=== PATIENT | male | born 1975 ===

== ENCOUNTER 2017-01-25 09:58 | Inpatient (IN) | payer BC ==
[2017-01-25] MEDS ORDERED: Phenylephrine 10 mg/ml Inj ONE (10:12)
[2017-01-25] MEDS ORDERED: Nitroglycerin 50mg in D5W 0 ML IV ONE (10:48)
[2017-01-25 11:03] VITALS: BMI 25.0
[2017-01-25] MEDS ORDERED: Heparin25000 units/250ml 1/2NS 250 ML IV PRN ×2 (11:54→12:51)
--- NOTE | 2017-01-25 12:00 | CP.PCM.CON ---
<Jaime Hidalgo - Last Filed: 01/25/17 18:58> History of Present Illness - History of Present Illness History of Present Illness: CRITICAL CARE CONSULT NOTE 41 year old male with PMHx significant for hypercholesterolemia and anxiety presents after sharp left sided chest pain earlier this morning. Patient states that he woke up from bed feeling the pain. He states that it was a 10/10 and felt as if his chest would cave in. The pain began to radiate down his left arm which caused him concern. All the while, patient was trying to figure out whether he was having an anxiety attack; however he realized that this pain was much more severe than he had ever experienced. Patient states that his young three year old child was home and that he did not want the child to hear ambulances and become alarmed so he walked the child to school and then called an uber. The uber brought him to [facility]. Patient states that while there he was told that he was having a heart attack and would have to be transported to [facility]. Pt's states that patient was unusually restless while sleeping last night. She couldn't tell whether he was shaking or in pain; but noted upon his behavior. Patient admits to chest pain, palpitations, nausea, headaches, diarrhea , diaphoresis and dyspnea. Patient denies vomiting at this time. PMHx- as mentioned above PSHx- ganglion cyst removal Fam Hx- Hypercholesterolemia Social: denies alcohol use; admits to drinking alcohol almost daily for many years but quit a few days ago. When patient does drink: he drinks 2-5 glasses of vodka, rum, several beers or glasses of wine. He had two glasses of wine with dinner on Monday; admits to MDMA use, marijuana and cocaine use in the past. Patient admits to using cocaine 1 week ago. Patient very adamant that should not know about drug use history. Meds: Statin, Fish oil Allergies: Shellfish, " cyramide", thorazine, lithium ( most of which cause swelling and anaphylaxis type reaction) PMD: Formerly Dr. Jeronimo of [facility] group Cake Inspector: Dr. Priest of [place] [facility] for hypercholesterolemia management. Review of Systems - Review of Systems Review of Systems: as noted in subjective ( HPI) - Cardiovascular Cardiovascular: Chest Pain, Chest Pain at Rest, Diaphoresis, Dyspnea, Pain Radiating to Arm/Neck/Jaw Past Patient History - Past Social History Smoking Status: Unknown If Ever Smoked Alcohol: > 2 Drinks/Day Drugs: Cannabis, Cocaine, Methamphetamine Home Situation {Lives}: With Family - CARDIAC Hx Hypercholesterolemia: Yes - PULMONARY Hx Respiratory Disorders: No - NEUROLOGICAL Hx Neurological Disorder: No - RENAL Hx Chronic Kidney Disease: No - HEMATOLOGICAL/ONCOLOGICAL Hx Blood Disorders: No - INTEGUMENTARY Hx Dermatological Problems: No - GASTROINTESTINAL Hx Gastrointestinal Disorders: No - GENITOURINARY/GYNECOLOGICAL Hx Genitourinary Disorders: No - PSYCHIATRIC Hx Psychophysiologic Disorder: No - SURGICAL HISTORY Hx Surgeries: No - ANESTHESIA Hx Anesthesia: No Meds Allergies/Adverse Reactions: Allergies Allergy/AdvReac Type Severity Reaction Status Date / Time chlorpromazine HCl Allergy ANAPHYLAXIS Verified 01/25/17 09:46 [From Thorazine] lithium Allergy ANAPHYLAXIS Verified 01/25/17 09:46 shellfish derived Allergy ANAPHYLAXIS Verified 01/25/17 09:46 - Medications Medications: Current Medications Aspirin (Aspirin Chewable) 81 mg PO DAILY [facility] Heparin Sodium (Porcine) (Heparin) 2,500 units IV ONCE ONE Stop: 01/25/17 11:55 Heparin Sodium/Sodium Chloride (Heparin 58631 Units/250ml 1/2 Normal Saline) 250 mls @ 0 mls/hr IV .Q0M PRN; Protocol; Per Protocol PRN Reason: PROTOCOL Rosuvastatin Calcium (Crestor) 20 mg PO HS [facility] Ticagrelor (Brilinta) 90 mg PO BID [facility] Physical Exam - Constitutional Appears: Non-toxic, No Acute Distress - Head Exam Head Exam: ATRAUMATIC, NORMAL INSPECTION, NORMOCEPHALIC - Eye Exam Eye Exam: EOMI, Normal appearance, PERRL Pupil Exam: NORMAL ACCOMODATION - ENT Exam ENT Exam: Mucous Membranes Moist, Normal Exam - Neck Exam Neck exam: Positive for: Normal Inspection - Respiratory Exam Respiratory Exam: Clear to Auscultation Bilateral, NORMAL BREATHING PATTERN. absent: Respiratory Distress - Cardiovascular Exam Cardiovascular Exam: REGULAR RHYTHM, +S1, +S2. absent: Tachycardia - GI/Abdominal Exam GI & Abdominal Exam: Normal Bowel Sounds, Soft - Extremities Exam Extremities exam: Positive for: full ROM, normal capillary refill, normal inspection Additional comments: groin cath site c/d/i no hematoma noted - Back Exam Additional comments: unable to assess at this time as patient is s/p PCI laying completely supine - Neurological Exam Neurological exam: Alert, CN II-XII Intact, Oriented x3 - Psychiatric Exam Psychiatric exam: Normal Mood - Skin Skin Exam: Intact, Normal Color, Warm Assessment & Plan - Assessment and Plan (Free Text) Assessment: 41 year old male with PMHX significant for hypercholesterolemia and anxiety presents code heart transfer from [place] following new onset chest pains experienced this morning. EKG findings significant for inferior wall MT. Patient s/p PCI with no obvious visible signs of coronary artery disease. Plan: Neuro: aao x3 in nad Hx of polysubstance use UDS positive for cocaine and marijuana. Low acetaminophen level. Negative for alcohol. Xanax- anxiety Patient does not want to know about drug hx Cardio: S/P PCI EKG findings of inferior wall MT Troponin 1 negative. Troponin 2-3 elevated and increasing No obvious signs of coronary artery disease Mildly reduced LVEF with mild inferoposterioe hypokinesis Elevated LV EDP Sluggish flow in left coronary artery system. Echo findings- see report. Rule out inflammatory causes- Steroids On Brillinta, ASA, Crestor No Beta blockers- Hx of cocaine use Dr. Winters on the case Pulm: Initial suspected PE ruled out by CTA with low suspicion Suspected Pneumonia- On Cef and Azithro- Started / GI: Regular diet Endo: Maintain euglycemia Nephro/: Continue to monitor Ins and outs Kidney function WNL Prophylaxis: GI: not currently indicated DVT: SCDs at this point; patient received heparin bolus earlier today (1/2 dose ) for initially suspected PE. <Amos Healy - Last Filed: 01/26/17 10:18> Meds - Medications Medications: Current Medications Aspirin (Aspirin Chewable) 81 mg PO DAILY [facility] Azithromycin 500 mg/ Sodium (Chloride) 250 mls @ 250 mls/hr IVPB Q24H [facility] Last Admin: 01/25/17 18:47 Dose: 250 mls/hr Ceftriaxone Sodium (Rocephin Iv 1 Gm Duplex) 50 mls @ 100 mls/hr IVPB Q24H [facility] Last Admin: 01/25/17 18:46 Dose: 100 mls/hr Methylprednisolone (Solu-Medrol) 40 mg IV Q8 [facility] Rosuvastatin Calcium (Crestor) 20 mg PO HS [facility] Ticagrelor (Brilinta) 90 mg PO BID [facility] Last Admin: 01/25/17 17:35 Dose: 90 mg Results - Vital Signs Recent Vital Signs: Last Vital Signs Temp 97.6 F 01/25/17 16:00 Pulse 68 01/25/17 19:00 Resp 16 01/25/17 19:00 BP 98/57 L 01/25/17 19:00 Pulse Ox 97 01/25/17 19:00 - Labs Result Diagrams: 01/26/17 05:01 01/26/17 05:01 Labs: Laboratory Results - last 24 hr 01/25/17 12:53 Total Creatine Kinase 511 H CK-MB (Mass) 38.6 H Troponin I Cancelled Troponin I, Quant 14.3000 H* NT-Pro-B Natriuret Pep 653 H Alcohol, Quantitative < 10 Attending/Attestation - Attestation I have personally seen and examined this patient.: Yes I have fully participated in the care of the patient.: Yes I have reviewed all pertinent clinical information: Yes Notes (Text): patient seen and examined 41 year old male with PMHX significant for hypercholesterolemia and anxiety presents code heart transfer from [place] following new onset chest pains experienced this morning. EKG findings significant for inferior wall MT. Patient s/p PCI with no obvious visible signs of coronary artery disease. CAT scan of the chest with contrast showed no pulmonary embolism but early infiltrate patient started on empiric antibiotic coverage Continue anticoagulation for now Follow-up with cardiology No further chest pain Hemodynamically stable Started on steroids for the possibility of myocarditis
[2017-01-25] MEDS ORDERED: Iodixanol 320 MG/ML 100 ML BOTTLE IV ONE (12:35)
[2017-01-25 13:09] LABS: ALCOHOL SERUM < 10 mg/dl (0-10)
--- NOTE | 2017-01-25 13:49 | CARDCATH ---
PROCEDURE DATE: 01/25/2017 BRIEF CLINICAL HISTORY: This is a 41-year-old gentleman who presented to [facility] with complaints of acute onset chest pain within the last 12 hours. Initial EKG showed suspicious ST flaquita vation in the inferior leads and was transferred to [facility] labour market economist for urgent catheterizati on. After informed consent obtained, the patient was brought to the labour market economist and placed on the table and prepped and draped in the usual sterile fashion. Conscious sedation and premedication for SHELLFISH ALLERGY Pepcid and Benadryl. Local lidocaine was infused in the right femoral artery region, f ollowed by the use of a micropuncture needle. The femoral artery access was obtained and a 6-Iranian sheath was placed. Usual diagnostic catheters were used for diagnostic coronary angiography with res ults as follows. FINDINGS: Left main normal caliber, normal vessel. LAD normal caliber vessel with sluggish flow seen and mild luminal irregularities in the proximal and middle segments. The distal LAD had areas of angulation and tortuosity and tapered down to small to medium size, but wrapped around the apex. Left circumflex artery was normal to medium caliber in size with mild luminal irregularities. Again sluggish flow was seen in this artery as well. Right coronary artery showed mild luminal irregularities and was an average caliber vessel. Distal r unoff into the right PDA and right PLS was noted with overall sluggish flow in this vessel as well. Left ventriculography was done with a hand injection revealing ejection fraction estimated to be 45% with mild inferior posterior hypokinesia and an elevated LVEDP of 28 mmHg. Aortic root injection was done showing normal caliber aorta without any luminal irregularities. The patient's blood pressure was low in the lab, which required IV fluids as well as 1 bolus of Jared-S ynephrine. The patient tolerated the procedure well without complications. The right femoral artery sheath was removed and Angio-Seal was used to close the puncture site. CONCLUSION: 1. No visible obstructive coronary artery disease. 2. Mildly reduced left ventricular ejection fraction with mild inferoposterior hypokinesia. 3. Elevated left ventricular end diastolic pressure. 4. Sluggish flow seen in the left coronary artery system. IMPRESSION: Differential diagnosis as cause of ST elevation in the inferior leads can include acute thrombosis with spontaneous recanalization. Also can be considered the possibility of perimyocarditis or other cardiomyopathy. Bedside echo was done at the end of the procedure, suggesting low normal LV function, borderline righ t ventricular function, mild to moderate mitral regurgitation, normal pulmonary artery systolic press ure, dilated and noncompliant IVC with mild inferoposterior hypokinesia. Based on these findings, I would suggest continuation of aspirin and Brilinta as well as heparin. Diagnostic evaluation with lo wer extremity venous Doppler and CT chest to exclude DVT or PE. The patient should continue with med ical optimization for mild LV systolic dysfunction and mild coronary artery disease. Willy Winters MD cc: [id number] TT: 01/25/2017 13:48:17 janice
--- NOTE | 2017-01-25 14:11 | CT ---
PROCEDURE: CT Chest with contrast (Pulmonary Angiogram) HISTORY: rule out PE COMPARISON: None available. TECHNIQUE: Axial computed tomography images were obtained of the chest in the pulmonary arterial phase of enhancement. Coronal and sagittal reformatted images were created and reviewed. Intravenous contrast dose: 100 mL Visipaque 320 Radiation dose: Total exam DLP = 509.13 mGy-cm. This CT exam was performed using one or more of the following dose reduction techniques: Automated exposure control, adjustment of the mA and/or kV according to patient size, and/or use of iterative reconstruction technique. FINDINGS: PULMONARY ARTERIES: Unremarkable. No pulmonary embolism. AORTA: No acute findings. No thoracic aortic aneurysm. LUNGS: Dependent atelectasis both lower lobes, right greater than left. Also in posterior segment right upper lobe. Cannot rule out early infiltrate superior segment right lower lobe. No pulmonary mass. PLEURAL SPACES: Unremarkable. No effusion or pneuomothorax. HEART: Unremarkable. No cardiomegaly. No significant pericardial effusion. LYMPH NODES: No lymphadenopathy. BONES, CHEST WALL: Unremarkable. No fracture or destructive lesion OTHER FINDINGS: Unremarkable. IMPRESSION: No evidence of pulmonary embolism. Bilateral lower lobe dependent atelectasis. Possible early infiltrate superior segment right lower lobe. Followup advised. No other abnormality.
--- NOTE | 2017-01-25 15:45 | CARD ---
APPROVED REPORT EXAM: Two-dimensional and M-mode echocardiogram with Doppler and color Doppler. Other Information Quality : GoodRhythm : INDICATION Acute MA Chest Pain POST CODE HEART M-Mode DIMENSIONS RVDd1.29 (2.1-3.2cm)Left Atrium (MM)3.02 (2.5-4.0cm) IVSd1.18 (0.7-1.1cm)Aortic Root2.91 (2.2-3.7cm) LVDd5.31 (4.0-5.6cm)Aortic Cusp Exc.2.14 (1.5-2.0cm) PWd1.07 (0.7-1.1cm)FS (%) 26 % LVDs3.91 (2.0-3.8cm)LVEF (%)45 (>50%) Mitral Valve MV E Anuizvhk65.1cm/sMV A Tiutetbf65.8cm/sE/A ratio2.2 TDI E/Lateral E'0.0E/Medial E'0.0 Tricuspid Valve TR Peak Rugfmitr774fh/sTR Peak Gr.[id number] LEFT VENTRICLE The left ventricle is normal size. There is normal left ventricular wall thickness. The systolic function is mildly impaired. The left ventricular diastolic function is normal. No left ventricle thrombus noted on this study. RIGHT VENTRICLE The right ventricle is normal size. There is normal right ventricular wall thickness. The right ventricular systolic function is normal. ATRIA The left atrium size is normal. The right atrium size is normal. AORTIC VALVE The aortic valve is normal in structure. No aortic regurgitation is present. MITRAL VALVE Mitral regurgitation is mild. TRICUSPID VALVE The tricuspid valve is normal in structure. GREAT VESSELS The aortic root is normal in size. The IVC is dilated. PERICARDIAL EFFUSION There is no pericardial effusion. <Conclusion> The left ventricle is normal size. There is normal left ventricular wall thickness. The systolic function is mildly impaired. The left ventricular diastolic function is normal. No left ventricle thrombus noted on this study. Mitral regurgitation is mild.
--- NOTE | 2017-01-25 18:10 | CP.PCM.HP ---
<Jaime Hidalgo - Last Filed: 01/25/17 18:43> Meds Allergies/Adverse Reactions: Allergies Allergy/AdvReac Type Severity Reaction Status Date / Time chlorpromazine HCl Allergy ANAPHYLAXIS Verified 01/25/17 09:46 [From Thorazine] lithium Allergy ANAPHYLAXIS Verified 01/25/17 09:46 shellfish derived Allergy ANAPHYLAXIS Verified 01/25/17 09:46 Results - Vital Signs Recent Vital Signs: Last Vital Signs Temp 97.6 F 01/25/17 16:00 Pulse 75 01/25/17 18:00 Resp 16 01/25/17 18:00 BP 102/54 L 01/25/17 18:00 Pulse Ox 100 01/25/17 17:56 - Labs Labs: Laboratory Results - last 24 hr 01/25/17 12:53 Total Creatine Kinase 511 H CK-MB (Mass) 38.6 H Troponin I Cancelled Troponin I, Quant 14.3000 H* NT-Pro-B Natriuret Pep 653 H Alcohol, Quantitative < 10 <Denise Carrillo S - Last Filed: 04/28/17 20:56> History of Present Illness - History of Present Illness History of Present Illness: 41 year old male with PMHX significant for HLD and anxiety presented with c/o new onset left sided chest pain radiating to left arm this morning. c/o nausea, headache, diarrhea, c/o increased sweating, mild SOB EKG findings significant for inferior wall LA. admitted and taken for CAG. Present on Admission - Present on Admission Any Indicators Present on Admission: No Past Patient History - Past Medical History & Family History Past Medical History?: Yes - Past Social History Smoking Status: Former Smoker - CARDIAC Hx Hypercholesterolemia: Yes Other/Comment: Pt has chest pain on this admission - PULMONARY Hx Respiratory Disorders: No - NEUROLOGICAL Hx Neurological Disorder: No - HEENT Hx HEENT Problems: No - RENAL Hx Chronic Kidney Disease: No - ENDOCRINE/METABOLIC Hx Endocrine Disorders: No - HEMATOLOGICAL/ONCOLOGICAL Hx Blood Disorders: No - INTEGUMENTARY Hx Dermatological Problems: No - MUSCULOSKELETAL/RHEUMATOLOGICAL Hx Musculoskeletal Disorders: No Hx Falls: No - GASTROINTESTINAL Hx Gastrointestinal Disorders: No - GENITOURINARY/GYNECOLOGICAL Hx Genitourinary Disorders: No - PSYCHIATRIC Hx Psychophysiologic Disorder: No - SURGICAL HISTORY Hx Surgeries: Yes Other/Comment: cyst removed from left wrist 2013 - ANESTHESIA Hx Anesthesia: Yes Hx Anesthesia Reactions: No Physical Exam - Constitutional Appears: Well - Head Exam Head Exam: ATRAUMATIC, NORMAL INSPECTION, NORMOCEPHALIC - Eye Exam Eye Exam: EOMI, Normal appearance, PERRL Pupil Exam: NORMAL ACCOMODATION, PERRL - ENT Exam ENT Exam: Mucous Membranes Moist, Normal Exam - Neck Exam Neck exam: Positive for: Normal Inspection - Respiratory Exam Respiratory Exam: Decreased Breath Sounds - Cardiovascular Exam Cardiovascular Exam: REGULAR RHYTHM, +S1, +S2 - GI/Abdominal Exam GI & Abdominal Exam: Diminished Bowel Sounds, Soft - Rectal Exam Rectal Exam: Deferred Results - Vital Signs Recent Vital Signs: Last Vital Signs Temp 97.6 F 01/25/17 16:00 Pulse 63 01/25/17 16:00 Resp 16 01/25/17 16:00 BP 101/60 01/25/17 16:00 Pulse Ox 95 01/25/17 14:30 - Labs Result Diagrams: 01/26/17 05:01 01/26/17 05:01 Labs: Laboratory Results - last 24 hr 01/25/17 12:53 Total Creatine Kinase 511 H CK-MB (Mass) 38.6 H Troponin I Cancelled Troponin I, Quant 14.3000 H* NT-Pro-B Natriuret Pep 653 H Alcohol, Quantitative < 10 Assessment & Plan (1) Acute LA Status: Acute (2) Chest pain Status: Acute (3) Drug abuse, cocaine type Status: Acute (4) Drug abuse, marijuana Status: Acute - Assessment and Plan (Free Text) Plan: s/p PCI brillint aspirin Dr Winters Statin monitor vitals input/output
[2017-01-25] MEDS: cefTRIAXone IV 1 gm in Dextros 50 ML IVPB SCH (18:46)
[2017-01-25] MEDS: Azithromycin 500 MG in Sodium Chloride 0.9% 250 ML IVPB SCH (18:47)
[2017-01-25 20:16] LABS: BASO % 0.1 % (0.0-2.0); HEMATOCRIT 45.1 % (35.0-51.0); LYMPH # 0.5 K/uL (1.0-4.3); LYMPH % 9.6 % (20.0-40.0); MEAN CELL VOLUME 85.3 fL (80.0-94.0); MEAN CORPUSCULAR HEMOGLOBIN 28.6 pg (27.0-31.0); MEAN CORPUSCULAR HGB CONC 33.6 g/dL (33.0-37.0); MEAN PLATELET VOLUME 8.2 fL (7.2-11.7); MONO # 0.1 K/uL (0.0-0.8); MONO % 1.7 % (0.0-10.0); PLATELET COUNT 202 K/uL (130-400); RED CELL DISTRIBUTION WIDTH 13.6 % (11.5-14.5); WHITE BLOOD COUNT 5.1 K/uL (4.8-10.8)
[2017-01-25 20:26] LABS: CHLORIDE 103 mmol/L (98-107)
[2017-01-25 20:27] LABS: POTASSIUM 4.1 mmol/L (3.6-5.2); SODIUM 138 mmol/L (132-148)
[2017-01-25 20:29] LABS: ALB/GLOB RATIO 1.3 (1.0-2.1); ALKALINE PHOSPHATASE 47 U/L (38-126); AST/SGOT 115 U/L (17-59); BILIRUBIN,TOTAL 0.4 mg/dL (0.2-1.3); CARBON DIOXIDE 21 mmol/L (22-30); GFR AFRICAN-AMERICAN > 60; TOTAL PROTEIN 6.8 g/dL (6.3-8.3)
[2017-01-25 20:30] LABS: ALT/SGPT 52 U/L (21-72); BLOOD UREA NITROGEN 10 mg/dL (9-20); CALCIUM 8.3 mg/dl (8.6-10.4); GLUCOSE,RANDOM 213 mg/dL (75-110)
[2017-01-26 05:04] LABS: BASO % 0.2 % (0.0-2.0); HEMATOCRIT 43.5 % (35.0-51.0); LYMPH # 0.8 K/uL (1.0-4.3); LYMPH % 8.2 % (20.0-40.0); MEAN CELL VOLUME 84.5 fL (80.0-94.0); MEAN CORPUSCULAR HEMOGLOBIN 28.2 pg (27.0-31.0); MEAN CORPUSCULAR HGB CONC 33.3 g/dL (33.0-37.0); MEAN PLATELET VOLUME 8.4 fL (7.2-11.7); MONO # 0.5 K/uL (0.0-0.8); MONO % 4.6 % (0.0-10.0); NRBC % 0.1 % (0.0-2.0); PLATELET COUNT 184 K/uL (130-400); RED CELL DISTRIBUTION WIDTH 13.4 % (11.5-14.5)
[2017-01-26 05:05] LABS: WHITE BLOOD COUNT 10.1 K/uL (4.8-10.8)
[2017-01-26 05:11] LABS: CHLORIDE 109 mmol/L (98-107); SODIUM 142 mmol/L (132-148)
[2017-01-26 05:13] LABS: BILIRUBIN,TOTAL 0.6 mg/dL (0.2-1.3); GFR AFRICAN-AMERICAN > 60
[2017-01-26 05:14] LABS: ALB/GLOB RATIO 1.3 (1.0-2.1); ALKALINE PHOSPHATASE 49 U/L (38-126); ALT/SGPT 48 U/L (21-72); AST/SGOT 90 U/L (17-59); BLOOD UREA NITROGEN 12 mg/dL (9-20); CARBON DIOXIDE 21 mmol/L (22-30); GLUCOSE,RANDOM 178 mg/dL (75-110); PHOSPHOROUS 2.6 mg/dL (2.5-4.5); TOTAL PROTEIN 6.9 g/dL (6.3-8.3)
[2017-01-26 05:15] LABS: CALCIUM 8.6 mg/dl (8.6-10.4); MAGNESIUM 2.4 mg/dL (1.6-2.3)
[2017-01-26 05:43] LABS: NEUTROPHIL 80 % (50-75); TOTAL CELLS COUNTED 100
[2017-01-26 05:51] LABS: NEUTROPHIL 83 % (50-75); TOTAL CELLS COUNTED 100
--- NOTE | 2017-01-26 11:23 | CP.CCUPN ---
<Jaime Hidalgo - Last Filed: 01/26/17 16:17> CCU Subjective - Physician Review Subjective (Free Text): 01/26/17 16:17 Pt seen and examined in no acute distress. Pt's present bedside. Patient's would like patient transferred to [facility]. Patient has no complaints at this time. CCU Objective - Vital Signs / Intake & Output Vital Signs (Last 4 hours): Vital Signs Temp Pulse Resp BP Pulse Ox 01/26/17 11:00 76 16 91/70 L 97 01/26/17 10:00 75 20 95/68 L 97 01/26/17 09:00 66 17 96/54 L 96 01/26/17 08:00 97.6 F 63 20 92/51 L 94 L Intake and Output (Last 8hrs): Intake & Output 01/25/17 01/26/17 01/26/17 22:59 06:59 14:59 Intake Total 497.4 150 300 Output Total 1100 1200 0 Balance -602.6 -1050 300 Weight 165 lb Intake: Intake, IV Amount 77.4 0 0 Right Antecubital 68.4 0 0 Rt Antecubital side port 9 Oral 420 150 300 Output: Urine 1100 1200 0 Urine, Voided 1100 1200 0 Other: # Voids Urine, Voided 1 - Physical Exam Head: Positive for: Atraumatic, Normocephalic Pupils: Positive for: PERRL Extroacular Muscles: Positive for: EOMI Mouth: Positive for: Moist Mucous Membranes Cardiovascular: Positive for: Normal S1, S2 Abdomen: Negative for: Distention, Normal Bowel Sounds, Peritoneal Signs Upper Extremity: Positive for: Normal Inspection Lower Extremity: Positive for: Normal Inspection Neurological: Positive for: CN II-XII Intact, Speech Normal Skin: Positive for: Warm, Dry, Normal Color Psychiatric: Positive for: Alert, Normal Insight, Normal Concentration - Medications Active Medications: Active Medications Generic Name Dose Route Start Last Admin Trade Name Linoq PRN Reason Stop Dose Admin Aspirin 81 mg 01/26/17 10:00 01/26/17 09:08 Aspirin Chewable PO 81 mg DAILY NIKI Administration Azithromycin 500 mg/ Sodium 250 mls @ 250 mls/hr 01/25/17 19:00 01/25/17 18:47 Chloride IVPB 250 mls/hr Q24H NIKI Administration Ceftriaxone Sodium 50 mls @ 100 mls/hr 01/25/17 19:00 01/25/17 18:46 Rocephin Iv 1 Gm Duplex IVPB 100 mls/hr Q24H NIKI Administration Methylprednisolone 40 mg 01/25/17 22:00 01/26/17 07:30 Solu-Medrol IV 40 mg Q8 NIKI Administration Rosuvastatin Calcium 20 mg 01/25/17 22:00 01/25/17 22:00 Crestor PO 20 mg HS NIKI Administration Ticagrelor 90 mg 01/25/17 18:00 01/26/17 09:08 Brilinta PO 90 mg BID NIKI Administration - Patient Studies Lab Studies: Lab Studies 01/26/17 01/26/17 01/25/17 Range/Units 05:50 05:01 20:05 WBC 10.1 D 5.1 (4.8-10.8) K/uL RBC 5.15 5.29 (4.40-5.90) Mil/uL Hgb 14.5 15.1 (12.0-18.0) g/dL Hct 43.5 45.1 (35.0-51.0) % MCV 84.5 85.3 (80.0-94.0) fL MCH 28.2 28.6 (27.0-31.0) pg MCHC 33.3 33.6 (33.0-37.0) g/dL RDW 13.4 13.6 (11.5-14.5) % Plt Count 184 202 (130-400) K/uL MPV 8.4 8.2 (7.2-11.7) fL Neut % (Auto) 87.0 H 88.6 H (50.0-75.0) % Lymph % (Auto) 8.2 L 9.6 L (20.0-40.0) % [place] % (Auto) 4.6 1.7 (0.0-10.0) % Eos % (Auto) 0.0 0.0 (0.0-4.0) % Baso % (Auto) 0.2 0.1 (0.0-2.0) % Neut # 8.8 H 4.5 (1.8-7.0) K/uL Lymph # 0.8 L 0.5 L (1.0-4.3) K/uL [place] # 0.5 0.1 (0.0-0.8) K/uL Eos # 0.0 0.0 (0.0-0.7) K/uL Baso # 0.0 0.0 (0.0-0.2) K/uL Neutrophils % (Manual) 83 H 80 H (50-75) % Band Neutrophils % 4 H 8 H (0-2) % Lymphocytes % (Manual) 9 L 10 L (20-40) % Monocytes % (Manual) 4 2 (0-10) % Platelet Estimate Normal Normal (NORMAL) Sodium 142 138 (132-148) mmol/L Potassium 4.0 4.1 (3.6-5.2) mmol/L Chloride 109 H 103 (98-107) mmol/L Carbon Dioxide 21 L 21 L (22-30) mmol/L Anion Gap 16 18 (10-20) BUN 12 10 (9-20) mg/dL Creatinine 0.8 0.9 (0.8-1.5) MG/DL Est GFR ( Amer) > 60 > 60 Est GFR (Non-Af Amer) > 60 > 60 Random Glucose 178 H 213 H (75-110) mg/dL Calcium 8.6 8.3 L (8.6-10.4) mg/dl Phosphorus 2.6 (2.5-4.5) mg/dL Magnesium 2.4 H (1.6-2.3) mg/dL Total Bilirubin 0.6 0.4 (0.2-1.3) mg/dL AST 90 H D 115 H (17-59) U/L ALT 48 52 (21-72) U/L Alkaline Phosphatase 49 47 (38-126) U/L Total Creatine Kinase 613 H (55-170) U/L CK-MB (Mass) 51.7 H (0.0-3.38) ng/mL Troponin I 4.6600 H* 11.0000 H* (0.00-0.120) ng/mL Troponin I, Quant 11.0000 H* (0.00-0.120) ng/mL NT-Pro-B Natriuret Pep (0-450) pg/mL Total Protein 6.9 6.8 (6.3-8.3) g/dL Albumin 3.9 3.8 (3.5-5.0) g/dL Globulin 3.0 3.0 (2.2-3.9) gm/dL Albumin/Globulin Ratio 1.3 1.3 (1.0-2.1) Urine Opiates Screen Negative (NEGATIVE) Urine Methadone Screen Negative (NEGATIVE) Ur Barbiturates Screen Negative (NEGATIVE) Ur Phencyclidine Scrn Negative (NEGATIVE) Ur Amphetamines Screen Negative (NEGATIVE) U Benzodiazepines Scrn Negative (NEGATIVE) U Oth Cocaine Metabols Negative (NEGATIVE) U Cannabinoids Screen Negative (NEGATIVE) Alcohol, Quantitative (0-10) mg/dl 01/25/17 Range/Units 12:53 WBC (4.8-10.8) K/uL RBC (4.40-5.90) Mil/uL Hgb (12.0-18.0) g/dL Hct (35.0-51.0) % MCV (80.0-94.0) fL MCH (27.0-31.0) pg MCHC (33.0-37.0) g/dL RDW (11.5-14.5) % Plt Count (130-400) K/uL MPV (7.2-11.7) fL Neut % (Auto) (50.0-75.0) % Lymph % (Auto) (20.0-40.0) % [place] % (Auto) (0.0-10.0) % Eos % (Auto) (0.0-4.0) % Baso % (Auto) (0.0-2.0) % Neut # (1.8-7.0) K/uL Lymph # (1.0-4.3) K/uL [place] # (0.0-0.8) K/uL Eos # (0.0-0.7) K/uL Baso # (0.0-0.2) K/uL Neutrophils % (Manual) (50-75) % Band Neutrophils % (0-2) % Lymphocytes % (Manual) (20-40) % Monocytes % (Manual) (0-10) % Platelet Estimate (NORMAL) Sodium (132-148) mmol/L Potassium (3.6-5.2) mmol/L Chloride (98-107) mmol/L Carbon Dioxide (22-30) mmol/L Anion Gap (10-20) BUN (9-20) mg/dL Creatinine (0.8-1.5) MG/DL Est GFR ( Amer) Est GFR (Non-Af Amer) Random Glucose (75-110) mg/dL Calcium (8.6-10.4) mg/dl Phosphorus (2.5-4.5) mg/dL Magnesium (1.6-2.3) mg/dL Total Bilirubin (0.2-1.3) mg/dL AST (17-59) U/L ALT (21-72) U/L Alkaline Phosphatase (38-126) U/L Total Creatine Kinase 511 H (55-170) U/L CK-MB (Mass) 38.6 H (0.0-3.38) ng/mL Troponin I Cancelled (0.00-0.120) ng/mL Troponin I, Quant 14.3000 H* (0.00-0.120) ng/mL NT-Pro-B Natriuret Pep 653 H (0-450) pg/mL Total Protein (6.3-8.3) g/dL Albumin (3.5-5.0) g/dL Globulin (2.2-3.9) gm/dL Albumin/Globulin Ratio (1.0-2.1) Urine Opiates Screen (NEGATIVE) Urine Methadone Screen (NEGATIVE) Ur Barbiturates Screen (NEGATIVE) Ur Phencyclidine Scrn (NEGATIVE) Ur Amphetamines Screen (NEGATIVE) U Benzodiazepines Scrn (NEGATIVE) U Oth Cocaine Metabols (NEGATIVE) U Cannabinoids Screen (NEGATIVE) Alcohol, Quantitative < 10 (0-10) mg/dl Laboratory Results - last 24 hr 01/25/17 01/25/17 01/26/17 12:53 20:05 05:01 WBC 5.1 10.1 D RBC 5.29 5.15 Hgb 15.1 14.5 Hct 45.1 43.5 MCV 85.3 84.5 MCH 28.6 28.2 MCHC 33.6 33.3 RDW 13.6 13.4 Plt Count 202 184 MPV 8.2 8.4 Neut % (Auto) 88.6 H 87.0 H Lymph % (Auto) 9.6 L 8.2 L [place] % (Auto) 1.7 4.6 Eos % (Auto) 0.0 0.0 Baso % (Auto) 0.1 0.2 Neut # 4.5 8.8 H Lymph # 0.5 L 0.8 L [place] # 0.1 0.5 Eos # 0.0 0.0 Baso # 0.0 0.0 Neutrophils % (Manual) 80 H 83 H Band Neutrophils % 8 H 4 H Lymphocytes % (Manual) 10 L 9 L Monocytes % (Manual) 2 4 Platelet Estimate Normal Normal Sodium 138 142 Potassium 4.1 4.0 Chloride 103 109 H Carbon Dioxide 21 L 21 L Anion Gap 18 16 BUN 10 12 Creatinine 0.9 0.8 Est GFR ( Amer) > 60 > 60 Est GFR (Non-Af Amer) > 60 > 60 Random Glucose 213 H 178 H Calcium 8.3 L 8.6 Phosphorus 2.6 Magnesium 2.4 H Total Bilirubin 0.4 0.6 AST 115 H 90 H D ALT 52 48 Alkaline Phosphatase 47 49 Total Creatine Kinase 511 H 613 H CK-MB (Mass) 38.6 H 51.7 H Troponin I Cancelled 11.0000 H* 4.6600 H* Troponin I, Quant 14.3000 H* 11.0000 H* NT-Pro-B Natriuret Pep 653 H Total Protein 6.8 6.9 Albumin 3.8 3.9 Globulin 3.0 3.0 Albumin/Globulin Ratio 1.3 1.3 Urine Opiates Screen Urine Methadone Screen Ur Barbiturates Screen Ur Phencyclidine Scrn Ur Amphetamines Screen U Benzodiazepines Scrn U Oth Cocaine Metabols U Cannabinoids Screen Alcohol, Quantitative < 10 01/26/17 05:50 WBC RBC Hgb Hct MCV MCH MCHC RDW Plt Count MPV Neut % (Auto) Lymph % (Auto) [place] % (Auto) Eos % (Auto) Baso % (Auto) Neut # Lymph # [place] # Eos # Baso # Neutrophils % (Manual) Band Neutrophils % Lymphocytes % (Manual) Monocytes % (Manual) Platelet Estimate Sodium Potassium Chloride Carbon Dioxide Anion Gap BUN Creatinine Est GFR ( Amer) Est GFR (Non-Af Amer) Random Glucose Calcium Phosphorus Magnesium Total Bilirubin AST ALT Alkaline Phosphatase Total Creatine Kinase CK-MB (Mass) Troponin I Troponin I, Quant NT-Pro-B Natriuret Pep Total Protein Albumin Globulin Albumin/Globulin Ratio Urine Opiates Screen Negative Urine Methadone Screen Negative Ur Barbiturates Screen Negative Ur Phencyclidine Scrn Negative Ur Amphetamines Screen Negative U Benzodiazepines Scrn Negative U Oth Cocaine Metabols Negative U Cannabinoids Screen Negative Alcohol, Quantitative EKG/Cardiology Studies: Cardiology / EKG Studies 01/25/17 11:07 ELECTROCARDIOGRAM Q8H Comment: Mode Of Transportation: Reason For Exam: STEMI 01/25/17 12:04 EKG [ELECTROCARDIOGRAM] Stat Comment: Mode Of Transportation: PORTABLE Reason For Exam: post code heart 01/25/17 19:07 ELECTROCARDIOGRAM Q8H Comment: Mode Of Transportation: Reason For Exam: STEMI 01/26/17 03:07 ELECTROCARDIOGRAM Q8H Comment: Mode Of Transportation: Reason For Exam: STEMI Review of Systems - Cardiovascular Cardiovascular: absent: Chest Pain, Chest Pain at Rest, Chest Pain with Activity - Respiratory Respiratory: absent: Cough, Dyspnea - Gastrointestinal Gastrointestinal: absent: Abdominal Pain - Musculoskeletal Musculoskeletal: absent: Arthralgias, Atrophy, Back Pain Critical Care Progress Note - Nutrition Nutrition: Nutrition Category Date Time Status Heart Healthy Diet [DIET] Diets 01/25/17 Lunch Active Assessment/Plan - Assessment and Plan (Free Text) Assessment: 41 year old male with PMHX significant for hypercholesterolemia and anxiety presents code heart transfer from [place] following new onset chest pains experienced this morning. EKG findings significant for inferior wall HI. Patient s/p PCI with no obvious visible signs of coronary artery disease. Plan: Neuro: aao x3 in nad Hx of polysubstance use UDS positive for cocaine and marijuana. Low acetaminophen level. Negative for alcohol. Xanax- anxiety Patient does not want to know about drug hx Cardio: S/P PCI EKG findings of inferior wall HI Troponin 1 negative. Troponin 2-3 elevated and increasing No obvious signs of coronary artery disease Mildly reduced LVEF with mild inferoposterior hypokinesis Elevated LV EDP Sluggish flow in left coronary artery system. Echo findings- per Dr. Winters: Mild inf-posterior hypokinesia with mild reduction in LV systolic function and dilated IVC with Bordeline/normal RV function Rule out inflammatory causes- Steroids On Brillinta, ASA, Crestor No Beta blockers- Hx of cocaine use Dr. Winters on the case Recommendations for low dose beta iban b/c cardioprotective benefits outweigh risks. Patient instructed on discontinuing any further cocaine use. Pulm: Initial suspected PE ruled out by CTA with low suspicion Suspected Pneumonia- On Cef and Azithro- Started 01/25 GI: Regular diet Endo: Maintain euglycemia Nephro/: Continue to monitor Ins and outs Kidney function WNL Prophylaxis: GI: not currently indicated DVT: SCDs at this point; patient received heparin bolus yest for initially suspected PE. Hold anticoag. Disp: Pt accepted at [facility]. Patient downgraded to telemetry status. Awaiting authorization for transfer to [facility] at [place]. <Wayne Ochoa - Last Filed: 01/26/17 17:00> CCU Objective - Vital Signs / Intake & Output Vital Signs (Last 4 hours): Vital Signs Temp Pulse Resp BP Pulse Ox 01/26/17 16:00 97.8 F 64 18 131/84 96 01/26/17 15:00 73 16 91/36 L 96 01/26/17 14:00 75 20 121/89 97 01/26/17 13:00 70 17 102/68 98 Intake and Output (Last 8hrs): Intake & Output 01/26/17 01/26/17 01/26/17 06:59 14:59 22:59 Intake Total 150 600 Output Total 1200 600 0 Balance -1050 0 0 Weight 165 lb Intake: Intake, IV Amount 0 0 Right Antecubital 0 0 Oral 150 600 Output: Urine 1200 600 0 Urine, Voided 1200 600 0 Other: # Voids Urine, Voided 1 - Medications Active Medications: Active Medications Generic Name Dose Route Start Last Admin Trade Name Freq PRN Reason Stop Dose Admin Aspirin 81 mg 01/26/17 10:00 01/26/17 09:08 Aspirin Chewable PO 81 mg DAILY NIKI Administration Azithromycin 500 mg/ Sodium 250 mls @ 250 mls/hr 01/25/17 19:00 01/25/17 18:47 Chloride IVPB 250 mls/hr Q24H NIKI Administration Ceftriaxone Sodium 50 mls @ 100 mls/hr 01/25/17 19:00 01/25/17 18:46 Rocephin Iv 1 Gm Duplex IVPB 100 mls/hr Q24H NIKI Administration Methylprednisolone 40 mg 01/25/17 22:00 01/26/17 14:16 Solu-Medrol IV 40 mg Q8 NIKI Administration Rosuvastatin Calcium 20 mg 01/25/17 22:00 01/25/17 22:00 Crestor PO 20 mg HS NIKI Administration Ticagrelor 90 mg 01/25/17 18:00 01/26/17 09:08 Brilinta PO 90 mg BID NIKI Administration - Patient Studies Lab Studies: Lab Studies 01/26/17 01/26/17 01/25/17 Range/Units 05:50 05:01 20:05 WBC 10.1 D 5.1 (4.8-10.8) K/uL RBC 5.15 5.29 (4.40-5.90) Mil/uL Hgb 14.5 15.1 (12.0-18.0) g/dL Hct 43.5 45.1 (35.0-51.0) % MCV 84.5 85.3 (80.0-94.0) fL MCH 28.2 28.6 (27.0-31.0) pg MCHC 33.3 33.6 (33.0-37.0) g/dL RDW 13.4 13.6 (11.5-14.5) % Plt Count 184 202 (130-400) K/uL MPV 8.4 8.2 (7.2-11.7) fL Neut % (Auto) 87.0 H 88.6 H (50.0-75.0) % Lymph % (Auto) 8.2 L 9.6 L (20.0-40.0) % [place] % (Auto) 4.6 1.7 (0.0-10.0) % Eos % (Auto) 0.0 0.0 (0.0-4.0) % Baso % (Auto) 0.2 0.1 (0.0-2.0) % Neut # 8.8 H 4.5 (1.8-7.0) K/uL Lymph # 0.8 L 0.5 L (1.0-4.3) K/uL [place] # 0.5 0.1 (0.0-0.8) K/uL Eos # 0.0 0.0 (0.0-0.7) K/uL Baso # 0.0 0.0 (0.0-0.2) K/uL Neutrophils % (Manual) 83 H 80 H (50-75) % Band Neutrophils % 4 H 8 H (0-2) % Lymphocytes % (Manual) 9 L 10 L (20-40) % Monocytes % (Manual) 4 2 (0-10) % Platelet Estimate Normal Normal (NORMAL) Sodium 142 138 (132-148) mmol/L Potassium 4.0 4.1 (3.6-5.2) mmol/L Chloride 109 H 103 (98-107) mmol/L Carbon Dioxide 21 L 21 L (22-30) mmol/L Anion Gap 16 18 (10-20) BUN 12 10 (9-20) mg/dL Creatinine 0.8 0.9 (0.8-1.5) MG/DL Est GFR ( Amer) > 60 > 60 Est GFR (Non-Af Amer) > 60 > 60 Random Glucose 178 H 213 H (75-110) mg/dL Calcium 8.6 8.3 L (8.6-10.4) mg/dl Phosphorus 2.6 (2.5-4.5) mg/dL Magnesium 2.4 H (1.6-2.3) mg/dL Total Bilirubin 0.6 0.4 (0.2-1.3) mg/dL AST 90 H D 115 H (17-59) U/L ALT 48 52 (21-72) U/L Alkaline Phosphatase 49 47 (38-126) U/L Total Creatine Kinase 613 H (55-170) U/L CK-MB (Mass) 51.7 H (0.0-3.38) ng/mL Troponin I 4.6600 H* 11.0000 H* (0.00-0.120) ng/mL Troponin I, Quant 11.0000 H* (0.00-0.120) ng/mL Total Protein 6.9 6.8 (6.3-8.3) g/dL Albumin 3.9 3.8 (3.5-5.0) g/dL Globulin 3.0 3.0 (2.2-3.9) gm/dL Albumin/Globulin Ratio 1.3 1.3 (1.0-2.1) Urine Opiates Screen Negative (NEGATIVE) Urine Methadone Screen Negative (NEGATIVE) Ur Barbiturates Screen Negative (NEGATIVE) Ur Phencyclidine Scrn Negative (NEGATIVE) Ur Amphetamines Screen Negative (NEGATIVE) U Benzodiazepines Scrn Negative (NEGATIVE) U Oth Cocaine Metabols Negative (NEGATIVE) U Cannabinoids Screen Negative (NEGATIVE) Laboratory Results - last 24 hr 01/25/17 01/26/1701/26/17 20:05 05:01 05:50 WBC 5.1 10.1 D RBC 5.29 5.15 Hgb 15.1 14.5 Hct 45.1 43.5 MCV 85.3 84.5 MCH 28.6 28.2 MCHC 33.6 33.3 RDW 13.6 13.4 Plt Count 202 184 MPV 8.2 8.4 Neut % (Auto) 88.6 H 87.0 H Lymph % (Auto) 9.6 L 8.2 L [place] % (Auto) 1.7 4.6 Eos % (Auto) 0.0 0.0 Baso % (Auto) 0.1 0.2 Neut # 4.5 8.8 H Lymph # 0.5 L 0.8 L [place] # 0.1 0.5 Eos # 0.0 0.0 Baso # 0.0 0.0 Neutrophils % (Manual) 80 H 83 H Band Neutrophils % 8 H 4 H Lymphocytes % (Manual) 10 L 9 L Monocytes % (Manual) 2 4 Platelet Estimate Normal Normal Sodium 138 142 Potassium 4.1 4.0 Chloride 103 109 H Carbon Dioxide 21 L 21 L Anion Gap 18 16 BUN 10 12 Creatinine 0.9 0.8 Est GFR ( Amer) > 60 > 60 Est GFR (Non-Af Amer) > 60 > 60 Random Glucose 213 H 178 H Calcium 8.3 L 8.6 Phosphorus 2.6 Magnesium 2.4 H Total Bilirubin 0.4 0.6 AST 115 H 90 H D ALT 52 48 Alkaline Phosphatase 47 49 Total Creatine Kinase 613 H CK-MB (Mass) 51.7 H Troponin I 11.0000 H* 4.6600 H* Troponin I, Quant 11.0000 H* Total Protein 6.8 6.9 Albumin 3.8 3.9 Globulin 3.0 3.0 Albumin/Globulin Ratio 1.3 1.3 Urine Opiates Screen Negative Urine Methadone Screen Negative Ur Barbiturates Screen Negative Ur Phencyclidine Scrn Negative Ur Amphetamines Screen Negative U Benzodiazepines Scrn Negative U Oth Cocaine Metabols Negative U Cannabinoids Screen Negative EKG/Cardiology Studies: Cardiology / EKG Studies 01/25/17 19:07 ELECTROCARDIOGRAM Q8H Comment: Mode Of Transportation: Reason For Exam: STEMI 01/26/17 03:07 ELECTROCARDIOGRAM Q8H Comment: Mode Of Transportation: Reason For Exam: STEMI Critical Care Progress Note - Nutrition Nutrition: Nutrition Category Date Time Status Heart Healthy Diet [DIET] Diets 01/25/17 Lunch Active Attending/Attestation - Attestation I have personally seen and examined this patient.: Yes I have fully participated in the care of the patient.: Yes I have reviewed all pertinent clinical information: Yes Notes (Text): 01/26/17 16:59 I have seen and examined the patient. Medical records, lab studies, and imaging were reviewed by me and a management plan was formulated on multidisciplinary rounds with resident Dr. Mcneill. I agree with their above documented assessment and plan. Patient is clinically stable for downgrade to Telemetry. Most likely had vasospastic acute HI, possibly related to cocaine abuse. Patient to be transferred to [facility] as per family request, hemodynamically stable for transfer. Critical Care Time 35 minutes. Multi-disciplinary rounds were performed with house staff, nursing, speech therapy, respiratory therapy, pharmacy and nutrition with integrated input from the primary team/attending and other consulting services. The documented time is cumulative and includes review of patient data/exams/labs/chart review and examination of the patient on rounds and throughout the day; time is exclusive of any procedures or teaching time.
--- NOTE | 2017-01-26 12:29 | CP.PCM.PN ---
Subjective - Date & Time of Evaluation Date of Evaluation: 01/26/17 Time of Evaluation: 12:25 - Subjective Subjective: Comfortable; No CP No arrythmias past 24 hours No fevers, chills, no N/V BP: normotensive 41 y/o gentleman with cocaine + screen, CP and BORDERLINE INFERIOR STEMI EKG: Found to have non-obstructive arteries and mild inferior hypokinesia with mild LV dysfunction. Objective - Vital Signs/Intake and Output Vital Signs (last 24 hours): Temp Pulse Resp BP Pulse Ox 98.0 F 81 16 127/71 98 01/26/17 12:00 01/26/17 12:00 01/26/17 12:00 01/26/17 12:00 01/26/17 12:00 Intake and Output: 01/26/17 01/26/17 06:59 18:59 Intake Total 320 480 Output Total 1200 600 Balance -880 -120 - Medications Medications: Current Medications Aspirin (Aspirin Chewable) 81 mg PO DAILY [facility] Last Admin: 01/26/17 09:08 Dose: 81 mg Azithromycin 500 mg/ Sodium (Chloride) 250 mls @ 250 mls/hr IVPB Q24H [facility] Last Admin: 01/25/17 18:47 Dose: 250 mls/hr Ceftriaxone Sodium (Rocephin Iv 1 Gm Duplex) 50 mls @ 100 mls/hr IVPB Q24H [facility] Last Admin: 01/25/17 18:46 Dose: 100 mls/hr Methylprednisolone (Solu-Medrol) 40 mg IV Q8 [facility] Last Admin: 01/26/17 07:30 Dose: 40 mg Rosuvastatin Calcium (Crestor) 20 mg PO HS [facility] Last Admin: 01/25/17 22:00 Dose: 20 mg Ticagrelor (Brilinta) 90 mg PO BID [facility] Last Admin: 01/26/17 09:08 Dose: 90 mg - Labs Labs: 01/26/17 05:01 01/26/17 05:01 - Constitutional Appears: No Acute Distress - Head Exam Head Exam: ATRAUMATIC, NORMAL INSPECTION, NORMOCEPHALIC - Eye Exam Eye Exam: EOMI, Normal appearance, PERRL - ENT Exam ENT Exam: Mucous Membranes Moist, Normal Oropharynx - Neck Exam Neck Exam: Normal Inspection. absent: Tenderness, Thyromegaly - Respiratory Exam Respiratory Exam: Clear to Ausculation Bilateral, NORMAL BREATHING PATTERN. absent: Rales, Rhonchi, Wheezes - Cardiovascular Exam Cardiovascular Exam: REGULAR RHYTHM, RRR, +S1, +S2. absent: JVD, +S4, Murmur - GI/Abdominal Exam GI & Abdominal Exam: Soft, Normal Bowel Sounds. absent: Tenderness, Organomegaly - Extremities Exam Extremities Exam: Full ROM, Normal Capillary Refill. absent: Calf Tenderness, Joint Swelling - Back Exam Back Exam: absent: CVA tenderness (L), CVA tenderness (R) - Neurological Exam Neurological Exam: Alert, Awake, Oriented x3 Neuro motor strength exam: Left Upper Extremity: 5, Right Upper Extremity: 5, Left Lower Extremity: 5, Right Lower Extremity: 5 - Psychiatric Exam Psychiatric exam: Anxious, Normal Affect. absent: Agitated - Skin Skin Exam: Normal Color, Warm Assessment and Plan - Assessment and Plan (Free Text) Assessment: 41 y/o with CP hx of LIPIDS and borderline ST elevation in the inferior leads; Transferred from [facility] for urgent cath * Found to have no coronary obstruction and minimal luminal irregularities in the LCX and LAD but patent vessels with sluggish flow * Aortic root angio showed normal caliber and no luminal iregularities * NO LE DVT * No PE on CT * ECHO directly seen by me: Mild inf-posterior hypokinesia with mild reduction in LV systolic function and dilated IVC with Bordeline/normal RV function * H/H, creat and R. groin stable Possibility given troponin 7 -> 14 ->11 --> 4 and presentation and sx's may be due to acute plaque rupture, thrombosis of coronary and spontaneous recanalization or distal embolization, possible triggered by spasm (+toxicology cocaine 01/2015) This admission toxicology negative however ? reported positive at [facility] [facility]. - Cannot exclude mild cardiomyopathy if hx of heavy etoh - Cannot exclude myocarditis from other cause RX: Optimize CAD risk factors, modify life-syle Cont DAPT with ASA and Brillinta Now that BP improved (he transiently required dopamine yesterday to maintain normal BP) I would suggest coreg 3.125 BID and ARB if BP tolerates. Cont Crestor 20 * Patient should be advised to avoid any recreational substances given B- Gino use. Patient and family are considering Tx to [place] for ongoing eval and care.
--- NOTE | 2017-01-26 15:35 | VASCLAB ---
PROCEDURE: Lower Extremity Venous Duplex Exam. HISTORY: Leg swelling PRIORS: None. TECHNIQUE: Bilateral common femoral, femoral, popliteal and posterior tibial, peroneal and great saphenous veins were evaluated. Flow was assessed with color Doppler, compressibility, assessment of phasic flow and augmentation response. Report prepared by NATALIO Roman, RVT FINDINGS: RIGHT: 1. Common Femoral Vein: 1.1. Compressibility - Fully compressible: Thrombus - None : Flow - Phasic: Augmentation -Normal: Reflux - None. 2. Femoral Vein: 2.1. Compressibility - Fully compressible: Thrombus - None : Flow - Phasic: Augmentation -Normal: Reflux - None. 3. Popliteal Vein: 3.1. Compressibility - Fully compressible: Thrombus - None : Flow - Phasic: Augmentation -Normal: Reflux - None. 4. Posterior Tibial Vein: 4.1. Compressibility - Fully compressible: Thrombus - None: Flow - Phasic: Augmentation -Normal: Reflux - None. 5. Peroneal Vein: 5.1. Compressibility - Fully compressible: Thrombus - None: Flow - Phasic: Augmentation -Normal: Reflux - None. 6. Great Saphenous Vein: 6.1. Compressibility - Fully compressible: Thrombus - None: Flow - Phasic: Augmentation - Normal: Reflux - None. LEFT: 1. Common Femoral Vein: 1.1. Compressibility - Fully compressible: Thrombus - None: Flow - Phasic: Augmentation -Normal: Reflux - None. 2. Femoral Vein: 2.1. Compressibility - Fully compressible: Thrombus - None: Flow - Phasic: Augmentation -Normal: Reflux - None. 3. Popliteal Vein: 3.1. Compressibility - Fully compressible: Thrombus - None : Flow - Phasic: Augmentation -Normal: Reflux - None. 4. Posterior Tibial Vein: 4.1. Compressibility - Fully compressible: Thrombus - None: Flow - Phasic: Augmentation -Normal: Reflux - None. 5. Peroneal Vein: 5.1. Compressibility - Fully compressible: Thrombus - None: Flow - Phasic: Augmentation -Normal: Reflux - None. 6. Great Saphenous Vein: 6.1. Compressibility - Fully compressible: Thrombus - None: Flow - Phasic: Augmentation - Normal: Reflux - None. OTHER FINDINGS: Right: None significant. Left: None significant. IMPRESSION: Right: No evidence of deep or superficial vein thrombosis of the right lower extremity. Normal valve function noted of the right side. Left: No evidence of deep or superficial vein thrombosis of the left lower extremity. Normal valve function noted of the left side.
[2017-01-26] MEDS: cefTRIAXone IV 1 gm in Dextros 50 ML IVPB SCH (18:06)
--- NOTE | 2017-01-26 18:06 | CP.PCM.HP ---
Past Patient History - Past Medical History & Family History Past Medical History?: Yes - Past Social History Smoking Status: Unknown If Ever Smoked Alcohol: > 2 Drinks/Day Drugs: Cannabis, Cocaine, Methamphetamine Home Situation {Lives}: With Family - CARDIAC Hx Hypercholesterolemia: Yes - PULMONARY Hx Respiratory Disorders: No - NEUROLOGICAL Hx Neurological Disorder: No - HEENT Hx HEENT Problems: No - RENAL Hx Chronic Kidney Disease: No - ENDOCRINE/METABOLIC Hx Endocrine Disorders: No - HEMATOLOGICAL/ONCOLOGICAL Hx Blood Disorders: No - INTEGUMENTARY Hx Dermatological Problems: No - MUSCULOSKELETAL/RHEUMATOLOGICAL Hx Musculoskeletal Disorders: No Hx Falls: No - GASTROINTESTINAL Hx Gastrointestinal Disorders: No - GENITOURINARY/GYNECOLOGICAL Hx Genitourinary Disorders: No - PSYCHIATRIC Hx Psychophysiologic Disorder: No - SURGICAL HISTORY Hx Surgeries: No - ANESTHESIA Hx Anesthesia: No Meds Allergies/Adverse Reactions: Allergies Allergy/AdvReac Type Severity Reaction Status Date / Time chlorpromazine HCl Allergy ANAPHYLAXIS Verified 01/25/17 09:46 [From Thorazine] lithium Allergy ANAPHYLAXIS Verified 01/25/17 09:46 shellfish derived Allergy ANAPHYLAXIS Verified 01/25/17 09:46 Results - Vital Signs Recent Vital Signs: Last Vital Signs Temp 97.8 F 01/26/17 16:00 Pulse 78 01/26/17 17:00 Resp 17 01/26/17 17:00 BP 118/72 01/26/17 17:00 Pulse Ox 97 01/26/17 17:00 - Labs Result Diagrams: 01/26/17 05:01 01/26/17 05:01 Labs: Laboratory Results - last 24 hr 01/25/17 01/26/17 01/26/17 20:05 05:01 05:50 WBC 5.1 10.1 D RBC 5.29 5.15 Hgb 15.1 14.5 Hct 45.1 43.5 MCV 85.3 84.5 MCH 28.6 28.2 MCHC 33.6 33.3 RDW 13.6 13.4 Plt Count 202 184 MPV 8.2 8.4 Neut % (Auto) 88.6 H 87.0 H Lymph % (Auto) 9.6 L 8.2 L [place] % (Auto) 1.7 4.6 Eos % (Auto) 0.0 0.0 Baso % (Auto) 0.1 0.2 Neut # 4.5 8.8 H Lymph # 0.5 L 0.8 L [place] # 0.1 0.5 Eos # 0.0 0.0 Baso # 0.0 0.0 Neutrophils % (Manual) 80 H 83 H Band Neutrophils % 8 H 4 H Lymphocytes % (Manual) 10 L 9 L Monocytes % (Manual) 2 4 Platelet Estimate Normal Normal Sodium 138 142 Potassium 4.1 4.0 Chloride 103 109 H Carbon Dioxide 21 L 21 L Anion Gap 18 16 BUN 10 12 Creatinine 0.9 0.8 Est GFR ( Amer) > 60 > 60 Est GFR (Non-Af Amer) > 60 > 60 Random Glucose 213 H 178 H Calcium 8.3 L 8.6 Phosphorus 2.6 Magnesium 2.4 H Total Bilirubin 0.4 0.6 AST 115 H 90 H D ALT 52 48 Alkaline Phosphatase 47 49 Total Creatine Kinase 613 H CK-MB (Mass) 51.7 H Troponin I 11.0000 H* 4.6600 H* Troponin I, Quant 11.0000 H* Total Protein 6.8 6.9 Albumin 3.8 3.9 Globulin 3.0 3.0 Albumin/Globulin Ratio 1.3 1.3 Urine Opiates Screen Negative Urine Methadone Screen Negative Ur Barbiturates Screen Negative Ur Phencyclidine Scrn Negative Ur Amphetamines Screen Negative U Benzodiazepines Scrn Negative U Oth Cocaine Metabols Negative U Cannabinoids Screen Negative
[2017-01-26] MEDS: Azithromycin 500 MG in Sodium Chloride 0.9% 250 ML IVPB SCH (18:09)
[2017-01-26 23:16] VITALS: BP 97/63; PULSE 59; RESP 18; TEMP 97.8; O2SAT 96
--- NOTE | 2017-01-29 08:58 | CARD ---
APPROVED REPORT EKG Measurement Heart [id number] NM [id number] <Conclusion> Normal sinus rhythm ST elevation, probably due to early repolarization Borderline ECG
--- NOTE | 2017-01-29 09:07 | CARD ---
APPROVED REPORT EKG Measurement Heart [id number] <Conclusion> Normal sinus rhythm Early repolarization Normal ECG
[2017-01-30 10:51] LABS: ACETONE None Detected (()); ETHANOL None Detected (()); METHANOL None Detected (())
--- NOTE | 2017-01-30 12:36 | CARD ---
APPROVED REPORT EKG Measurement Heart [id number] VA [id number] <Conclusion> Normal sinus rhythm Increased R/S ratio in V1, consider early transition or posterior infarct Abnormal ECG
--- NOTE | 2017-01-30 12:36 | CARD ---
APPROVED REPORT EKG Measurement Heart [id number] QT0T0 QTc0 <Conclusion> No QRS complexes found, no ECG analysis possible
== END 2017-01-27 03:15 | disposition short-term general hospital (02) | DRG 280 ==
LOC: C.9I 10:32 → C.5T 01-26 22:47
PROVIDERS: ADMIT Internal Medicine Nephrology; ATTEND Internal Medicine Nephrology
PROC: 4A023N7 Measurement of Cardiac Sampling and Pressure, Left Heart, Percutaneous Approach (ICD-10-PCS; principal; 2017-01-25)
PROC: B201YZZ Plain Radiography of Multiple Coronary Arteries using Other Contrast (ICD-10-PCS; 2017-01-25)
PROC: B205YZZ Plain Radiography of Left Heart using Other Contrast (ICD-10-PCS; 2017-01-25)
DX: I21.19 ST elevation (STEMI) myocardial infarction involving other coronary artery of inferior wall (principal); J18.9 Pneumonia, unspecified organism; I25.10 Atherosclerotic heart disease of native coronary artery without angina pectoris; F41.9 Anxiety disorder, unspecified; Z87.891 Personal history of nicotine dependence; E78.00 Pure hypercholesterolemia, unspecified; F12.90 Cannabis use, unspecified, uncomplicated; F14.90 Cocaine use, unspecified, uncomplicated; Z95.5 Presence of coronary angioplasty implant and graft